=== PATIENT | female | born 1990 | race Two or more races ===

== ENCOUNTER 2018-03-28 17:30 | Inpatient (IN) | payer BC, OTHER ==
[~2018-03-28] VITALS: Ht 157.5 cm; Wt 68.5 kg
[2018-03-28] MEDS ORDERED: LACT. RINGERS/OXYTOCIN 20UNITS 1,000 ML IV SCH (17:55)
[2018-03-28] MEDS ORDERED: LACTATED RINGER'S 1,000 ML IV SCH ×2 (17:55)
[2018-03-28] MEDS ORDERED: WITCH HAZEL-GLYCERIN PAD TOP PRN (18:00)
[2018-03-28] MEDS ORDERED: LIDOCAINE 2%HCL (LOCAL ANESTH.) INJ 10ml MDV IJ ONE (18:00)
[2018-03-28] MEDS ORDERED: NALBUPHINE HCL 10 MG/1ml INJECTION IV PRN (18:00)
[2018-03-28] MEDS ORDERED: PHISODERM TOP SOLN 240ML BTL TOP PRN (18:00)
[2018-03-28] MEDS ORDERED: DERMOPLAST 60ML BOTTLE TOP PRN (18:00)
[2018-03-28] MEDS ORDERED: METHYLERGONOVINE MALEATE 0.2 MG/ML AMP IM PRN (18:00)
[2018-03-28] MEDS ORDERED: PREN-153 OR (18:03)
[2018-03-28] MEDS ORDERED: LACT. RINGERS/OXYTOCIN 20UNITS 1,000 ML IV ONE (18:09)
[2018-03-28 18:35] LABS: Basophils # (auto) 0.1 uL; Basophils % (auto) 0.4 % (0.0-2.0); Eosinophils # (auto) 0.1 uL; Hematocrit 41.7 % (36.0-46.0); Hemoglobin 13.6 g/dL (12.2-16.2); Lymphocytes # (auto) 3.7 uL; Lymphocytes % (auto) 29.2 % (10.0-50.0); Mean Corpuscular Hemoglobin 29.8 pg (28.0-32.0); Mean Corpuscular Hgb Conc. 32.5 g/dL (32.0-36.0); Mean Corpuscular Volume 91.9 fL (80.0-100.0); Monocytes # (auto) 1.2 uL; Monocytes % (auto) 9.2 % (0.0-12.0); Neutrophils # (auto) 7.7 uL; Neutrophils % (auto) 60.2 % (37.0-80.0); Platelet Count (auto) 344 10^3/uL (140-450); Red Blood Cells 4.54 10^6/uL (4.0-5.20); Red Cell Distribution Width 13.6 % (11.8-14.3); White Blood Cell 12.8 10^3/uL (4.4-10.8)
[2018-03-28 18:53] LABS: Albumin 2.7 g/dL (3.4-5.0); BUN/Creatinine Ratio 13.9; Calcium 8.4 mg/dL (8.5-10.1); Potassium 3.5 mmol/L (3.5-5.1)
[2018-03-28 18:55] LABS: Bilirubin, Total 0.4 mg/dL (0.2-1.0)
[2018-03-28] MEDS ORDERED: IBUPROFEN 600 MG TAB PO PRN (19:00)
[2018-03-28 19:02] LABS: INR 0.86 (0.9-1.15); Partial Thromboplastin Time 25.9 sec (23.78-33.04); Prothrombin Time 9.3 sec (9.27-12.13)
[2018-03-28 19:17] LABS: Alcohol, Urine < 3.0 mg/dL (0-5); Amphetamine Screen, Urine NEGATIVE (NEGATIVE); Barbiturate Scree,Urine NEGATIVE (NEGATIVE); Benzodiazephine Screen, Urine NEGATIVE (NEGATIVE); Cannabinoid Screen, Urine NEGATIVE (NEGATIVE); Cocaine Screen, Urine NEGATIVE (NEGATIVE); Opiate Scree,Urine NEGATIVE (NEGATIVE); Phencyclidine Screen, Urine NEGATIVE (NEGATIVE)
--- NOTE | 2018-03-28 20:30 | NUR ---
Ambulation: Patient OOB with standby assistance by RN. Patient ambulated to bathroom with steady gait. [facility] teaching provided with returned demonstration by patient. Clean gown provided and bed linen changed. Patient ambulated back to bed with steady gait and no distress noted.
[2018-03-28 23:00] VITALS: BP 105/55
[2018-03-29 03:10] VITALS: BP 100/56
--- NOTE | 2018-03-29 05:31 | NUR ---
IV removal IV DC'd with aseptic technique, catheter fully intact. Pressure dressing applied to site. Patient tolerated well.
[2018-03-29 07:04] VITALS: BP 116/72
[2018-03-29] MEDS ORDERED: DOCUSATE CALCIUM 240 MG CAP PO SCH (10:00)
[2018-03-29 11:00] VITALS: BP 113/70
[2018-03-29] MEDS ORDERED: PREN-96 PO (13:18)
[2018-03-29 15:00] VITALS: BP 111/75
[2018-03-29 19:26] VITALS: BP 116/57
--- NOTE | 2018-03-29 20:15 | NUR ---
Discharge: Discharge instructions given as ordered. Pt encouraged to follow up with [facility] as instructed. All questions and concerns addressed. Patient verbalized understanding. Medication reconciliation completed and copy given to patient. All required/requested vaccines given and copies of vaccinations given to patient. Patient encouraged to prepare to depart unit.
[2018-03-29 20:25] VITALS: BP 116/57
--- NOTE | 2018-03-29 20:25 | NUR ---
Discharge: Patient taken to vehicle with steady gait with all personal belongings, accompanied by staff, FOB and in carseat. No distress noted at time of departure, no adverse changes in status since initial assessment.
[2018-03-30 06:06] LABS: RPR Non Reactive (Non Reactive)
== END 2018-03-29 20:25 | disposition home or self-care (01) | DRG 807 ==
LOC: OBSVTOIN 17:30 → LDRP 17:30
PROVIDERS: ADMIT Specialist; ATTEND Specialist
PROC: 10E0XZZ Delivery of Products of Conception, External Approach (ICD-10-PCS; principal; 2018-03-28)
PROC: 10907ZC Drainage of Amniotic Fluid, Therapeutic from Products of Conception, Via Natural or Artificial Opening (ICD-10-PCS; 2018-03-28)
DX: O42.92 Full-term premature rupture of membranes, unspecified as to length of time between rupture and onset of labor (principal); Z37.0 Single live birth; O70.1 Second degree perineal laceration during delivery; Z3A.39 39 weeks gestation of pregnancy
CPT/HCPCS: 36415; 59025; 59409; 80053; 80307; 81002; 85025; 85610; 85730; 86592; 86850; 86900; 86901; 96365; 96366; G0378; J2001; J2590